=== PATIENT | female | born 1980 ===

== ENCOUNTER 2019-10-07 21:23 | Emergency (ER) | payer BC, OTHER ==
--- OUTSIDE RECORDS SUMMARY | 2019-10-07 21:32 | XMS REPORT | Continuity of Care Document ---
:1980 External Reference #:[id number] Author Name Gloria Peng O.D. Address [address] [place] [address] Care Team Providers Name Role Phone Cris Palomo M.D. 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 Onset: 08/10/2019 Social History Type Date Description Comments Sex Unknown ETOH Use Denies alcohol use Tobacco Use Start: Unknown Patient has never smoked Recreational Drug Use Denies Drug Use Smoking Status Reviewed: 08/10/19 Patient has never smoked Allergies, Adverse Reactions, Alerts Active Allergies Reaction Severity Comments Date NSAIDS 08/10/2019 Medications Description No Active Medications Immunizations Description No Information Available Vital Signs Description No Information Available Results Description No Information Available Procedures Description No Information Available Medical Devices Description No Information Available Encounters Description No Information Available Assessments Date Code Description Provider 08/10/2019 H52.13 Myopia, bilateral Gloria Peng O.D. Plan of Treatment 08/10/2019 - Gloria Peng O.D.H52.13 Myopia, bilateralComments:Smoking can increase the risk of developing or worsening any eye related disease, as well as affect your overall health. If you are a smoker, we strongly recommend that you quit.If you are not a smoker, we strongly recommend that you do not start. You have Myopia, or near sightedness. I have given you a prescription for glasses.Follow up:2 YEARS You can expect to have your eyes dilated at your next visit. If Dr. Peng orders any additional testing, it may require extra time. We recommend that you bring sunglasses, as dilation drops often make you light sensitive until they wear off. We always recommend you bring someone to drive youhome if you are uncomfortable driving with your eyes dilated. If you have any questions before your next visit, feel free to call our office at . Functional Status Description No Information Available Mental Status Description No Information Available Referrals Description No Information Available
[2019-10-07 21:38] VITALS: BP 119/64
--- NOTE | 2019-10-07 22:03 | UC ---
UC General HPI - HPI Summary HPI Summary: WOKE UP THIS MORNING WITH ACUTE LOW BACK PAIN. PATIENT DENIES ANY INJURY. NO PREVIOUS HISTORY OF BACK PAIN. NO URINARY SYMPTOMS. NO ABDOMINAL PAIN. NO DIARRHEA OR VOMITING. DID NOT TAKE ANY ANALGESICS OR ANTIPYRETICS. SHE ALSO HAS BILATERAL RED, IRRITATED EYES WITH CLEAR DRAINAGE. IS COMPLAINING OF PRESSURE BEHIND HER EYES. VISION IS SLIGHTLY BLURRY. NO COUGH, CONGESTION, SORE THROAT OR EAR PAIN. IN THE URGENT CARE SHE WAS FOUND TO BE TACHYCARDIC WITH A LOW-GRADE FEVER. IS CURRENTLY BREAST-FEEDING HER 1-YEAR-OLD BABY. IS ON DAY 3 OF MENSTRUAL CYCLE. - History of Current Complaint Chief Complaint: UCGeneralIllness Stated Complaint: FEVER, RED EYES, BACK PAIN Time Seen by Provider: 10/07/19 21:40 Hx Obtained From: Patient Hx Last Menstrual Period: current Onset/Duration: Sudden Onset, Lasting Hours, Still Present Timing: Constant Onset Severity: Moderate Current Severity: Moderate Pain Intensity: 6 Associated Signs & Symptoms: Positive: Back Pain, Fever, Headache. Negative: Abdominal Pain, Nausea, Trauma - Allergy/Home Medications Allergies/Adverse Reactions: Allergies Allergy/AdvReac Type Severity Reaction Status Date / Time Penicillins Allergy Intermediate Rash Verified 10/07/19 21:38 NSAIDS (Non-Steroidal Allergy Anaphylatic Verified 10/07/19 21:38 Anti-Inflamma Shock PMH/Surg Hx/FS Hx/Imm Hx Previously Healthy: Yes - Surgical History Surgical History: Yes Surgery Procedure, Year, and Place: appendix - Family History Known Family History: Positive: Non-Contributory - Social History Alcohol Use: None Substance Use Type: None Smoking Status (MU): Never Smoked Tobacco Review of Systems All Other Systems Reviewed And Are Negative: Yes Constitutional: Positive: Fever, Fatigue Eyes: Positive: Blurred Vision, Drainage, Eye Redness. Negative: Photophobia Respiratory: Positive: Negative Cardiovascular: Positive: Negative Gastrointestinal: Positive: Negative Genitourinary: Positive: Negative Musculoskeletal: Positive: Other: - mid low back pain Neurological: Positive: Negative Physical Exam Triage Information Reviewed: Yes Appearance: No Pain Distress, Well-Nourished Vital Signs: Initial Vital Signs Temp 100.7 F 10/07/19 21:33 Pulse 120 10/07/19 21:33 Resp 18 10/07/19 21:33 BP 119/64 10/07/19 21:33 Pulse Ox 96 01/04/20 21:33 Laboratory Tests 10/07/19 10/07/19 21:51 21:56 POC Urine Color Yellow POC Urine Clarity Clear POC Urine pH 5.5 POC Ur Specif Mcdavid 1.015 POC Urine Protein Negative POC Ur Glucose (UA) Negative POC Urine Ketones Negative POC Urine Blood 1+ A POC Urine Nitrite Negative POC Urine Bilirubin Negative POC Urine Urobilinogen 0.2 POC U Leukocyte Esteras Negative Influenza A (Rapid) Negative Influenza B (Rapid) Negative Vital Signs Reviewed: Yes Eyes: Positive: Conjunctiva Inflamed, Discharge - CLEAR DRAINAGE BILATERAL EYES , Other: - PERRL, EOMI ENT: Positive: Hearing grossly normal, Pharynx normal, TMs normal Neck: Positive: Supple, Nontender, No Lymphadenopathy Respiratory Exam: Normal Cardiovascular: Positive: Tachycardia Abdomen Description: Positive: Nontender, Soft. Negative: CVA Tenderness (R), CVA Tenderness (L), Distended, Guarding Musculoskeletal: Positive: No Edema Neurological: Positive: Alert Psychological: Positive: Age Appropriate Behavior Skin: Negative: Rashes Course/Dx - Course Course Of Treatment: UNCLEAR ETIOLOGY OF CONSTELLATION OF SYMPTOMS. MAY NOT ALL BE DUE TO 1 ENTITY. DISCUSSED WITH PATIENT TRANSFER TO THE ER FOR MORE DEFINITIVE EVALUATION HOWEVER SHE PREFERS TO BE TREATED ON AN OUTPATIENT BASIS FOR NOW AND STATES SHE WILL GO TO THE EMERGENCY ROOM IN THE MORNING IF SHE IS NOT FEELING IMPROVED. WILL COVER FOR BILATERAL CONJUNCTIVITIS WITH CIPRO EYEDROPS. PATIENT IS ALREADY ESTABLISHED WITH DR. GUILLEN AND STATES SHE CAN FOLLOW-UP WITH HIM IF NEEDED. PATIENT IS CURRENTLY BREAST-FEEDING HER 1-YEAR-OLD CHILD. SHE IS COMPLAINING OF LOW BACK PAIN THAT STARTED THIS MORNING. DISCUSSED WITH HER THE POSSIBILITY OF A MUSCLE STRAIN. PERHAPS SHE SLEPT AWKWARDLY OVERNIGHT. SHE DID NOT TAKE ANY ANALGESICS AT HOME. SHE REPORTS AN ALLERGY TO NSAIDS SO I HAVE RECOMMENDED SHE TAKE TYLENOL TO SEE IF THIS HELPS WITH HER DISCOMFORT. SHE WAS ALSO FOUND TO HAVE A LOW-GRADE FEVER 100.7 HERE IN THE URGENT CARE. PERHAPS SHE IS DEVELOPING A VIRAL ILLNESS. FLU SWAB NEGATIVE. TYLENOL SHOULD HOPEFULLY ALSO HELP WITH HER FEVER AND HER HEART RATE SHOULD SUBSEQUENTLY NORMALIZED. AGAIN I STRESSED TO THE PATIENT THE IMPORTANCE OF GOING TO THE EMERGENCY ROOM IF HER SYMPTOMS ARE NOT IMPROVED IN THE MORNING OR IF SHE FEELS WORSE AT ANY LEVEL. - Diagnoses Provider Diagnosis: Bilateral conjunctivitis, Low back pain, Fever in adult Discharge ED - Sign-Out/Discharge Documenting (check all that apply): Patient Departure All imaging exams completed and their final reports reviewed: No Studies - Discharge Plan Condition: Stable Disposition: HOME Patient Education Materials: Fever in Adults (ED), Acute Low Back Pain (ED), Conjunctivitis (ED) Referrals: Ad Guillen MD [Medical Doctor] - 2 Days Cris Palomo MD [Primary Care Provider] - 2 Days Additional Instructions: YOUR CONSTELLATION OF SYMPTOMS MAY NOT ALL BE RELATED TO ONE DISTINCT ENTITY. 1. WILL TREAT FOR [place]KEYE WITH ANTIBIOTIC EYEDROPS. INSTILL 1 DROP TO EACH EYE EVERY 4 HOURS WHILE YOU'RE AWAKE. USE THE DROPS UNTIL YOUR SYMPTOMS HAVE RESOLVED AND THEN FOR AN EXTRA ONE OR 2 DAYS. IF YOUR SYMPTOMS ARE NOT IMPROVING BY WEDNESDAY CALL DR. GUILLEN'S OFFICE FOR A FOLLOW-UP APPOINTMENT. 2. YOUR LOW BACK PAIN MAY BE DUE TO A MUSCLE STRAIN. I RECOMMEND YOU TAKE TYLENOL TO SEE IF THIS HELPS YOUR DISCOMFORT. TYLENOL MAX DOSE: 1000MG (2 EXTRA STRENGTH TABS) EVERY 8 HRS OR 650MG (2 REGULAR TABS) EVERY 6 HRS 3. YOUR RAPID HEART RATE IS LIKELY RELATED TO YOUR LOW-GRADE FEVER. THE TYLENOL SHOULD ALSO HELP WITH YOUR FEVER AT WHICH POINT YOUR HEART RATE SHOULD IMPROVE TO LESS THAN 100 BEATS PER MINUTE. YOU MAY BE DEVELOPING AN ACUTE VIRAL ILLNESS AND IF SO YOUR SYMPTOMS SHOULD IMPROVE ON THEIR OWN WITHIN THE NEXT WEEK OR SO. GO TO THE ER WITHOUT FAIL IF YOU ARE FEELING WORSE TOMORROW MORNING OR IF YOU DEVELOP WORSENING FEVER, PAIN, NAUSEA/VOMITING OR ANY OTHER CONCERNING SYMPTOMS. - Billing Disposition and Condition Condition: STABLE Disposition: Home
[2019-10-07 22:07] LABS: Influenza A Molecular NEGATIVE (Negative); Influenza B Molecular NEGATIVE (Negative)
[2019-10-07] MEDS ORDERED: Ciprofloxacin 0.3% OPTH.SOL* BTL BOTH EYES ONE (22:11)
== END 2019-10-07 22:29 | disposition home or self-care (01) ==
LOC: UCEAST 21:23
DX: M54.5 Low back pain (principal); H10.9 Unspecified conjunctivitis; R50.9 Fever, unspecified; R53.83 Other fatigue; Z88.0 Allergy status to penicillin; Z88.6 Allergy status to analgesic agent
CPT/HCPCS: 81003; 99212; A9270-GY; G0463